=== PATIENT | female | born 1990 | race Caucasian/White ===

== ENCOUNTER 2023-11-01 23:30 | Emergency (ER) | payer OTHER, SELFPAY ==
[2023-11-01 23:42] VITALS: BP 191/101; PULSE 75; RESP 16; TEMP 36.6; O2SAT 98
--- NOTE | 2023-11-02 01:41 | ED.GENADULT ---
HPI - General Adult General Chief complaint: Laceration/Wound Stated complaint: left leg lac Time Seen by Provider: 11/02/23 00:35 Source: patient Mode of arrival: ambulatory Limitations: no limitations History of Present Illness HPI narrative: Patient presents with cut on her left leg approximately 5 hours prior to arrival. Cut on her home grill. Last tetanus shot was definitely less than 2 years ago but she thinks it was only about 1 year ago. Side super deep but it just keeps bleeding. She has tried applying a Band-Aid with no significant improvement. No other areas of injury. No numbness or tingling of the foot, no movement deficits. She does not take any anticoagulants. No other areas of injury. She thoroughly cleanse the wound with soap and water and then hydrogen peroxide x2. Past medical history notable for hypertension and diabetes, medications reviewed, no known allergies ROS is negative for other generalized, skin or musculoskeletal changes. Related Data Home Medications ?Medication ?Instructions ?Recorded ?Confirmed lisinopril 10 mg tablet 10 mg PO DAILY 11/01/23 11/01/23 metformin 500 mg 24 hr 500 mg PO DAILY 11/01/23 11/01/23 tablet,extended release (gastric retention) (Glumetza) Allergies Allergy/AdvReac Type Severity Reaction Status Date / Time No Known Drug Allergies Allergy Verified 11/01/23 23:47 PFSH PFS Social History Do you use any of these nicotine containing products: None Non-prescribed substance use: denies use Exam Const: Vital Signs, click to edit/add: Vital Signs - 24 hr 11/01/23 23:42 Temperature 97.8 F Pulse Rate [Pulse Oximeter] 75 Respiratory Rate 16 Blood Pressure [Ri ght Upper Arm] 191/101 H Pulse Oximetry 98 Oxygen Delivery Me thod Room Air Documenting provider has reviewed patient's vital signs: yes Common normals: no apparent distress and alert General appearance: cooperative, comfortable and well kempt HENMT: Common normals: normocephalic Head and scalp: normocephalic Face and sinus: normal facial exam Eye: Common normals: conjunctivae normal General eye: normal appearance of both eyes Conjunctiva: conjunctiva(e) normal Neck & C-Spine: General: normal visual inspection Resp: Common normals: normal respiratory effort Effort & inspection: able to speak in complete sentences Cardio: Other: Normal DP pulses, regular rate and rhythm Extremity: Other: Right leg grossly normal. Left leg with 5 cm diagonal laceration across anterior left tibia. The top 2 cm are fairly superficial really just dermal depth. The bottom 3 cm are full skin thickness and do involve a superficial vein which is the source of the bleeding. Muscles, tendons do not appear to be affected. Normal strength, range of motion of foot and ankle with no sensory or motor deficit. Normal DP pulses and capillary refill in all toes. Neuro: Sensorium/orientation: alert Speech: speech normal Gait (neuro): normal gait Psych: Appearance: well kempt Attitude: engaged Activity/motor behavior: appropriate eye contact Insight: insight good Judgement: judgment good Skin: Narrative: Other than the laceration on the left tibia, no other affected areas. Course Course ED Course: Initially, bleeding look like it could be controlled with just pressure and Steri-Strips. This was successful when she was laying down but had her get up and walk around and after about 5 minutes we are starting to notice some oozing. Certainly did not want persistent bleeding. Therefore removed the Steri-Strips and we cleaned the wound with just alcohol wipes. Procedure: Laceration repair: 3 mL 1% lidocaine with epinephrine were used to anesthetize wound with good hemostasis and anesthesia. Using clean technique, horizontal mattress suture used over the venous bleeding area with good wound reapproximation and hemostasis again using 4-0 Monocryl. Two simple interrupted sutures were then placed above and below the mattress suture for good wound approximation. Well tolerated. Covered with antibiotic ointment and large Band-Aid. Instructed on wound care. Okay to use Tylenol and ibuprofen if needed for discomfort, watch for signs of infection. Tetanus is already up-to-date. Suture removal in 7-10 days in the clinic, please call for an appointment. Alarm symptoms reviewed that would warrant earlier ED assessment. She verbalized understanding and agreement. Vital Signs Vital signs: Initial Vital Signs Temperature 97.8 F 11/01/23 23:42 Temperature Source Temporal Artery Scan 11/01/23 23:42 Pulse Rate 75 11/01/23 23:42 Respiratory Rate 16 11/01/23 23:42 Blood Pressure 191/101 H 11/01/23 23:42 Blood Pressure Mean 131 H 11/01/23 23:42 Blood Pressure Position Supine 11/01/23 23:42 Pulse Oximetry 98 11/01/23 23:42 Oxygen Delivery Method Room Air 11/01/23 23:42 Vital Signs Temperature 97.8 F 11/01/23 23:42 Pulse Rate 75 11/01/23 23:42 Respiratory Rate 16 11/01/23 23:42 Blood Pressure 191/101 H 11/01/23 23:42 Pulse Oximetry 98 11/01/23 23:42 Oxygen Delivery Method Room Air 11/01/23 23:42 Temperature 97.8 F 11/01/23 23:42 Pulse Rate 75 11/01/23 23:42 Respiratory Rate 16 11/01/23 23:42 Blood Pressure 191/101 H 11/01/23 23:42 Pulse Oximetry 98 11/01/23 23:42 Oxygen Delivery Method Room Air 11/01/23 23:42 Discharge Plan Discharge Clinical Impression: Laceration of leg Patient Disposition: Home w/ Parent or Adult Condition: Stable Instructions: Laceration (DC) Additional Instructions: Therefore stitches placed in the wound. The top and bottom stitch are traditional interrupted stitch and the center is a to throw horizontal mattress suture. This was done because there was a small vein right at the surface of the cut that kept wanting to bleed. There is only 1 not there because of this type of stitch and therefore only 3 of the stitches will need to be removed. Keep the dressing on until tonight. In the evening, you may remove the bandage, shower, gently wash with soap and water. Apply antibiotic ointment and change the Band-Aid at least once daily. Infection is unlikely and your tetanus is up-to-date. This does not need antibiotics. A little bit of redness and itchiness can be normal, especially the 1st couple of days. If you have significant surrounding redness, swelling drainage or fever, this should be re-evaluated sooner. Please make an appointment in 7-10 days to have the stitches removed in the clinic. Activity Level: No Restrictions Discharge Diet: Regular Prescriptions: No Action metformin [Glumetza] 500 mg tablet,ER [email or web address].[email or web address] 24 hr 500 mg PO DAILY lisinopril 10 mg tablet 10 mg PO DAILY Stand Alone Forms: [employer] Info Instructions
== END 2023-11-02 01:16 | disposition home or self-care (01) ==
LOC: ED 11-02 01:14
PROVIDERS: Emergency Provider Family Medicine
DX: S81.812A Laceration without foreign body, left lower leg, initial encounter (principal); W26.9XXA Contact with unspecified sharp object(s), initial encounter
CPT/HCPCS: 12002; 99283